=== PATIENT | female | born 1975 | race American Indian/Alaskan Native ===

== ENCOUNTER → 2020-10-23 | Outpatient (CLI) | payer BC, SELFPAY ==
[~2020-10-23] MED LIST: CEPH500 PO; CIPR500 PO; CYCL10 PO; HYDACE5 PO; IBUP600 PO; IBUP800 PO; NAPR550 PO; OXYACE5T PO; RXHYDACE PO; RXNAPNA550 PO; Zantac150 MG PO
== END | disposition home or self-care (01) ==
LOC: LAB SHORT 18:00
DX: N64.52 Nipple discharge (principal)
CPT/HCPCS: 87070; 87075; 87205